=== PATIENT | male | born 1960 | race African-American/Black ===

== ENCOUNTER 2022-08-24 16:24 | Inpatient (IN) | payer OTHER ==
[2022-08-24 16:56] VITALS: BMI 22.8
[2022-08-24] MEDS ORDERED: MAG HYDROX/AL HYDROX/SIMETH 30 ML UNIT-DOSE CUP PO PRN (19:41)
[2022-08-24] MEDS ORDERED: BISMUTH SUBSALICYLATE 524 MG/30 ML PO PRN (19:41)
[2022-08-24] MEDS ORDERED: MAGNESIUM HYDROX 2400MG/30ML ORAL SUSPENSION 30 ML CUP PO PRN (19:41)
[2022-08-24] MEDS ORDERED: BENZOCAINE/MENTHOL (CHLORASEPTIC ) LOZENGE MM PRN (19:41)
[2022-08-24] MEDS ORDERED: POLYETHYLENE GLYCOL (HEALTHYLAX) 3350 17 GM PACKET PO PRN (19:41)
[2022-08-24] MEDS ORDERED: ONDANSETRON *ODT* 4 MG TABLET SL PRN (19:41)
[2022-08-24] MEDS ORDERED: IBUPROFEN 400 MG TABLET (FP) PO PRN (19:41)
[2022-08-24] MEDS ORDERED: IBUPROFEN 600 MG TABLET (FP) PO PRN (19:41)
[2022-08-24] MEDS ORDERED: ACETAMINOPHEN 325 MG TABLET (FP) PO PRN ×2 (19:41)
[2022-08-24] MEDS ORDERED: P-EPHED 60MG/TRIPROLIDI 2.5MG TABLET PO PRN (19:41)
[2022-08-24] MEDS ORDERED: DICYCLOMINE HCL 10 MG CAPSULE PO PRN (19:41)
[2022-08-24] MEDS ORDERED: LOPERAMIDE HCL 2 MG CAPSULE PO PRN (19:41)
[2022-08-24] MEDS ORDERED: guaiFENesin 200 MG/10 ML 10 ML UNIT-DOSE CUPS PO PRN (19:41)
[2022-08-24] MEDS ORDERED: ALBUTEROL SO4 HFA INHALER IH PRN (19:44)
[2022-08-24] MEDS: THIAMINE HCL 100 MG TABLET (FP) PO SCH (22:21)
[2022-08-24] MEDS: BUDESONIDE/FORMETEROL FUMARATE 160/4.5 mcg INHALER IH SCH (22:21)
[2022-08-24] MEDS: MELATONIN 5 MG TABLETS PO PRN (22:22)
[2022-08-25] MEDS ORDERED: methaDONE HCL 10 MG TABLET PO ONE (07:52)
[2022-08-25] MEDS ORDERED: methaDONE 40 MG, methaDONE 20 MG PO ONE (08:20)
[2022-08-25] MEDS: MONTELUKAST NA 10 MG TABLET PO SCH (10:11)
[2022-08-25] MEDS: BUDESONIDE/FORMETEROL FUMARATE 160/4.5 mcg INHALER IH SCH ×2 (10:11→22:09)
[2022-08-25] MEDS: PRENATAL VITAMINS W/ FOLIC ACID TABLET (FP) PO SCH (10:11)
[2022-08-25] MEDS: amLODIPine BESYLATE 10 MG TABLET (FP) PO SCH (10:11)
[2022-08-25] MEDS: diazePAM 5 MG TABLET PO SCH ×3 (11:16→22:07)
[2022-08-25 12:09] LABS: HEMATOCRIT 45.8 % (35.4-49); HEMOGLOBIN 14.9 GM/dL (11.7-16.9); MCH 28.3 pg (25.7-33.7); MCHC 32.5 g/dl (32.0-35.9); MEAN CELL VOLUME 87.2 fl (80-96); MEAN PLT VOLUME 9.4 fl (7.5-11.1); PLATELET COUNT 165 10^3/uL (134-434); RBC 5.25 M/mm3 (4.00-5.60); RDW 14.2 % (11.9-15.9); WHITE BLOOD COUNT 4.4 K/mm3 (4.0-10.0)
[2022-08-25 12:16] LABS: CALCIUM 8.8 mg/dL (8.5-10.1)
[2022-08-25 12:17] LABS: ALBUMIN 3.3 g/dl (3.4-5.0)
[2022-08-25 12:21] LABS: BILIRUBIN,TOTAL 0.3 mg/dL (0.2-1)
[2022-08-25 12:22] LABS: TOT PROT 6.5 g/dl (6.4-8.2)
[2022-08-25 12:23] LABS: CREATININE 2.1 mg/dL (0.55-1.3)
[2022-08-25] MEDS: THIAMINE HCL 100 MG TABLET (FP) PO SCH (22:08)
[2022-08-25] MEDS: MELATONIN 5 MG TABLETS PO PRN (22:08)
[2022-08-26] MEDS: methaDONE 40 MG, methaDONE 20 MG PO SCH (05:58)
[2022-08-26] MEDS: diazePAM 5 MG TABLET PO SCH ×4 (05:59→21:59)
[2022-08-26] MEDS ORDERED: methaDONE HCL 10 MG TABLET PO SCH (06:00)
[2022-08-26] MEDS: BUDESONIDE/FORMETEROL FUMARATE 160/4.5 mcg INHALER IH SCH ×2 (10:06→21:59)
[2022-08-26] MEDS: PRENATAL VITAMINS W/ FOLIC ACID TABLET (FP) PO SCH (10:06)
[2022-08-26] MEDS: amLODIPine BESYLATE 10 MG TABLET (FP) PO SCH (10:06)
[2022-08-26] MEDS: MONTELUKAST NA 10 MG TABLET PO SCH (10:08)
[2022-08-26 13:10] LABS: BLOOD UREA NITROGEN 19.9 mg/dL (7-18)
[2022-08-26 13:13] LABS: CREATININE 1.8 mg/dL (0.55-1.3)
[2022-08-26] MEDS: THIAMINE HCL 100 MG TABLET (FP) PO SCH (21:59)
[2022-08-27] MEDS: methaDONE 40 MG, methaDONE 20 MG PO SCH (05:58)
[2022-08-27] MEDS: diazePAM 5 MG TABLET PO SCH ×3 (05:58→21:53)
[2022-08-27] MEDS: BUDESONIDE/FORMETEROL FUMARATE 160/4.5 mcg INHALER IH SCH ×2 (09:48→21:52)
[2022-08-27] MEDS: PRENATAL VITAMINS W/ FOLIC ACID TABLET (FP) PO SCH (09:48)
[2022-08-27] MEDS: MONTELUKAST NA 10 MG TABLET PO SCH (09:48)
[2022-08-27] MEDS: amLODIPine BESYLATE 10 MG TABLET (FP) PO SCH (09:48)
[2022-08-27] MEDS: diazePAM 5 MG TABLET PO PRN (09:49)
[2022-08-27] MEDS: THIAMINE HCL 100 MG TABLET (FP) PO SCH (21:53)
[2022-08-28] MEDS: methaDONE 40 MG, methaDONE 20 MG PO SCH (05:55)
[2022-08-28] MEDS: diazePAM 5 MG TABLET PO SCH ×2 (05:58→18:07)
[2022-08-28] MEDS: amLODIPine BESYLATE 10 MG TABLET (FP) PO SCH (09:25)
[2022-08-28] MEDS: PRENATAL VITAMINS W/ FOLIC ACID TABLET (FP) PO SCH (09:25)
[2022-08-28] MEDS: MONTELUKAST NA 10 MG TABLET PO SCH (09:25)
[2022-08-28] MEDS: BUDESONIDE/FORMETEROL FUMARATE 160/4.5 mcg INHALER IH SCH ×2 (09:26→21:38)
[2022-08-28] MEDS: diazePAM 5 MG TABLET PO PRN (09:26)
[2022-08-28] MEDS: THIAMINE HCL 100 MG TABLET (FP) PO SCH (21:37)
[2022-08-28] MEDS: MELATONIN 5 MG TABLETS PO PRN (21:37)
[2022-08-29] MEDS ORDERED: diazePAM 5 MG TABLET PO ONE (06:00)
[2022-08-29] MEDS: methaDONE 40 MG, methaDONE 20 MG PO SCH (06:18)
[2022-08-29] MEDS: BUDESONIDE/FORMETEROL FUMARATE 160/4.5 mcg INHALER IH SCH ×2 (10:59→22:48)
[2022-08-29] MEDS: PRENATAL VITAMINS W/ FOLIC ACID TABLET (FP) PO SCH (10:59)
[2022-08-29] MEDS: amLODIPine BESYLATE 10 MG TABLET (FP) PO SCH (10:59)
[2022-08-29] MEDS: MONTELUKAST NA 10 MG TABLET PO SCH (10:59)
[2022-08-29 13:12] LABS: CALCIUM 8.7 mg/dL (8.5-10.1)
[2022-08-29 13:13] LABS: BLOOD UREA NITROGEN 27.4 mg/dL (7-18)
[2022-08-29 13:16] LABS: CREATININE 2.2 mg/dL (0.55-1.3)
[2022-08-29] MEDS: THIAMINE HCL 100 MG TABLET (FP) PO SCH (22:47)
[2022-08-30] MEDS: methaDONE 40 MG, methaDONE 20 MG PO SCH (05:40)
[2022-08-30] MEDS: PRENATAL VITAMINS W/ FOLIC ACID TABLET (FP) PO SCH (10:17)
[2022-08-30] MEDS: amLODIPine BESYLATE 10 MG TABLET (FP) PO SCH (10:18)
[2022-08-30] MEDS: MONTELUKAST NA 10 MG TABLET PO SCH (10:18)
[2022-08-30] MEDS: BUDESONIDE/FORMETEROL FUMARATE 160/4.5 mcg INHALER IH SCH ×2 (10:18→22:15)
[2022-08-30] MEDS: MELATONIN 5 MG TABLETS PO PRN (22:14)
[2022-08-30] MEDS: THIAMINE HCL 100 MG TABLET (FP) PO SCH (22:14)
[2022-08-31] MEDS: methaDONE 40 MG, methaDONE 20 MG PO SCH (05:34)
[2022-08-31 06:37] VITALS: RESP 17
[2022-08-31 09:02] VITALS: BP 110/73; PULSE 66; TEMP 98.6
[2022-08-31] MEDS: amLODIPine BESYLATE 10 MG TABLET (FP) PO SCH (10:42)
[2022-08-31] MEDS: PRENATAL VITAMINS W/ FOLIC ACID TABLET (FP) PO SCH (10:42)
[2022-08-31] MEDS: MONTELUKAST NA 10 MG TABLET PO SCH (10:42)
[2022-08-31] MEDS: BUDESONIDE/FORMETEROL FUMARATE 160/4.5 mcg INHALER IH SCH (10:43)
[2022-08-31 14:52] LABS: BLOOD UREA NITROGEN 22.9 mg/dL (7-18); CALCIUM 8.8 mg/dL (8.5-10.1)
[2022-08-31 14:55] LABS: CREATININE 1.9 mg/dL (0.55-1.3)
== END 2022-08-31 10:54 | disposition home or self-care (01) | DRG 773 ==
LOC: YASAS 16:24 → Y3N 20:03
PROVIDERS: ADMIT Allergy & Immunology; ATTEND Surgery
PROC: HZ2ZZZZ Detoxification Services for Substance Abuse Treatment (ICD-10-PCS; principal; 2022-08-24)
DX: F10.230 Alcohol dependence with withdrawal, uncomplicated (principal); F11.20 Opioid dependence, uncomplicated; F14.20 Cocaine dependence, uncomplicated; F12.20 Cannabis dependence, uncomplicated; I10 Essential (primary) hypertension; J42 Unspecified chronic bronchitis; Z20.822 Contact with and (suspected) exposure to COVID-19; Z87.891 Personal history of nicotine dependence
CPT/HCPCS: 36415; 80048; 80053; 82565; 82947; 83036; 84520; 85027; 86780; C9803-CS; U0003; U0005

== ENCOUNTER 2022-09-19 13:02 | Inpatient (IN) | payer OTHER ==
[2022-09-19 13:37] VITALS: BMI 22.4
[2022-09-19] MEDS ORDERED: NALOXONE HCL (KLOXXADO) 8 MG SPRAY NS PRN (14:01)
[2022-09-19] MEDS ORDERED: MAGNESIUM HYDROX 2400MG/30ML ORAL SUSPENSION 30 ML CUP PO PRN (14:01)
[2022-09-19] MEDS ORDERED: MAG HYDROX/AL HYDROX/SIMETH 30 ML UNIT-DOSE CUP PO PRN (14:01)
[2022-09-19] MEDS ORDERED: BISMUTH SUBSALICYLATE 524 MG/30 ML PO PRN (14:01)
[2022-09-19] MEDS ORDERED: NICOTINE POLACRILEX 2 MG GUM BUC PRN (14:01)
[2022-09-19] MEDS ORDERED: ONDANSETRON *ODT* 4 MG TABLET SL PRN (14:01)
[2022-09-19] MEDS ORDERED: LOPERAMIDE HCL 2 MG CAPSULE PO PRN (14:01)
[2022-09-19] MEDS ORDERED: IBUPROFEN 400 MG TABLET (FP) PO PRN (14:01)
[2022-09-19] MEDS ORDERED: ACETAMINOPHEN 325 MG TABLET (FP) PO PRN ×2 (14:01)
[2022-09-19] MEDS ORDERED: NICOTINE 10 MG CARTRIDGE (INHALER) IH PRN (14:01)
[2022-09-19] MEDS ORDERED: DICYCLOMINE HCL 10 MG CAPSULE PO PRN (14:01)
[2022-09-19] MEDS ORDERED: POLYETHYLENE GLYCOL (HEALTHYLAX) 3350 17 GM PACKET PO PRN (14:01)
[2022-09-19] MEDS ORDERED: BENZOCAINE/MENTHOL (CHLORASEPTIC ) LOZENGE MM PRN (14:01)
[2022-09-19] MEDS ORDERED: IBUPROFEN 600 MG TABLET (FP) PO PRN (14:01)
[2022-09-19] MEDS ORDERED: ALBUTEROL SO4 HFA INHALER IH PRN (14:06)
[2022-09-19] MEDS: hydrOXYzine PAMOATE 25 MG CAPSULE (FP) PO PRN (15:08)
[2022-09-19] MEDS: METHOCARBAMOL 500 MG TABLET PO PRN (15:08)
[2022-09-19] MEDS: amLODIPine BESYLATE 10 MG TABLET (FP) PO SCH (15:54)
[2022-09-19] MEDS: ALBUTEROL SO4 2.5/IPRATROPIUM 0.5 INH SOL 3 ML VIAL.NEB. NEB PRN ×2 (17:00→22:04)
[2022-09-19] MEDS: THIAMINE HCL 100 MG TABLET (FP) PO SCH (22:03)
[2022-09-19] MEDS: MELATONIN 5 MG TABLETS PO SCH (22:03)
[2022-09-19] MEDS: BUDESONIDE/FORMETEROL FUMARATE 160/4.5 mcg INHALER IH SCH (22:04)
[2022-09-20] MEDS ORDERED: methaDONE HCL 10 MG TABLET PO SCH (08:45)
[2022-09-20] MEDS: PRENATAL VITAMINS W/ FOLIC ACID TABLET (FP) PO SCH (09:27)
[2022-09-20] MEDS: MONTELUKAST NA 10 MG TABLET PO SCH (09:28)
[2022-09-20] MEDS: methaDONE 40 MG, methaDONE 30 MG PO SCH (09:28)
[2022-09-20] MEDS: BUDESONIDE/FORMETEROL FUMARATE 160/4.5 mcg INHALER IH SCH ×2 (09:28→22:05)
[2022-09-20] MEDS: METHOCARBAMOL 500 MG TABLET PO PRN (09:28)
[2022-09-20] MEDS: amLODIPine BESYLATE 10 MG TABLET (FP) PO SCH (09:28)
[2022-09-20 10:47] LABS: HEMATOCRIT 46.2 % (35.4-49); HEMOGLOBIN 14.7 GM/dL (11.7-16.9); MCH 28.2 pg (25.7-33.7); MCHC 31.9 g/dl (32.0-35.9); MEAN CELL VOLUME 88.5 fl (80-96); MEAN PLT VOLUME 9.3 fl (7.5-11.1); PLATELET COUNT 184 10^3/uL (134-434); RBC 5.23 M/mm3 (4.00-5.60); RDW 14.9 % (11.9-15.9); WHITE BLOOD COUNT 5.1 K/mm3 (4.0-10.0)
[2022-09-20 12:45] LABS: ALBUMIN 3.5 g/dl (3.4-5.0); BLOOD UREA NITROGEN 29.6 mg/dL (7-18)
[2022-09-20 12:48] LABS: CREATININE 2.1 mg/dL (0.55-1.3)
[2022-09-20 12:49] LABS: BILIRUBIN,TOTAL 0.5 mg/dL (0.2-1)
[2022-09-20 12:50] LABS: TOT PROT 6.9 g/dl (6.4-8.2)
[2022-09-20] MEDS: THIAMINE HCL 100 MG TABLET (FP) PO SCH (22:05)
[2022-09-20] MEDS: MELATONIN 5 MG TABLETS PO SCH (22:06)
[2022-09-21] MEDS: methaDONE 40 MG, methaDONE 30 MG PO SCH (05:30)
[2022-09-21 09:27] VITALS: BP 143/85; PULSE 60; RESP 16; TEMP 97.5
[2022-09-21] MEDS: METHOCARBAMOL 500 MG TABLET PO PRN (10:03)
[2022-09-21] MEDS: MONTELUKAST NA 10 MG TABLET PO SCH (10:03)
[2022-09-21] MEDS: hydrOXYzine PAMOATE 25 MG CAPSULE (FP) PO PRN (10:03)
[2022-09-21] MEDS: amLODIPine BESYLATE 10 MG TABLET (FP) PO SCH (10:03)
[2022-09-21] MEDS: PRENATAL VITAMINS W/ FOLIC ACID TABLET (FP) PO SCH (10:03)
[2022-09-21] MEDS: BUDESONIDE/FORMETEROL FUMARATE 160/4.5 mcg INHALER IH SCH (10:04)
[2022-09-21 12:48] LABS: BLOOD UREA NITROGEN 21.8 mg/dL (7-18)
[2022-09-21 12:52] LABS: CREATININE 1.7 mg/dL (0.55-1.3)
== END 2022-09-21 11:15 | disposition other institution (70) | DRG 773 ==
LOC: YASAS 13:02 → Y6N 14:24 → UNDOADMIN 14:24
PROVIDERS: ADMIT Allergy & Immunology; ATTEND Surgery
PROC: HZ2ZZZZ Detoxification Services for Substance Abuse Treatment (ICD-10-PCS; principal; 2022-09-19)
DX: F10.230 Alcohol dependence with withdrawal, uncomplicated (principal); F11.20 Opioid dependence, uncomplicated; F14.20 Cocaine dependence, uncomplicated; I10 Essential (primary) hypertension; J44.9 Chronic obstructive pulmonary disease, unspecified; J45.20 Mild intermittent asthma, uncomplicated; Z87.891 Personal history of nicotine dependence
CPT/HCPCS: 36415; 80053; 82565; 83036; 84520; 85027; 86780; 87811; 93005; 93010; 94640; C9803-CS; U0003; U0005